=== PATIENT | female | born 1935 | race Caucasian/White ===

== ENCOUNTER 2016-07-23 20:22 | Inpatient (IN) | payer OTHER, BC ==
[~2016-07-23] VITALS: Ht 162.6 cm; Wt 63.2 kg
[~2016-07-23 20:22] MED LIST: ALPRAZOLAM0.25 M2 PO; COLACE100 MG PO; LEVOTHYROXINE75 MCG PO; LORTAB 5-325 M1 EACH PO; MEDROL DOSEPAK4 MG PO; PROPRANOLOL HCL80 MG PO; SKELAXIN800 MG PO; VALSARTAN320 MG PO
[2016-07-23 23:04] LABS: CHLORIDE 127 mEq/L (99-109); SODIUM 147 mEq/L (136-147)
[2016-07-23 23:05] LABS: GLUCOSE 95 mg/dL (70-99); POTASSIUM 2.1 mEq/L (3.7-5.4)
[2016-07-23 23:07] LABS: ANION GAP 6 MEQ/L (2-14)
[2016-07-23 23:09] LABS: GFR ESTIMATE (CALCULATED) > 59 mL/min/
[2016-07-23 23:10] LABS: UREA NITROGEN (BUN) 10 mg/dL (9-23)
[2016-07-23 23:14] LABS: HEMATOCRIT 20.8 % (36.0-46.0); MCH 31.9 PG (29.0-34.0); MCHC 31.7 G/DL (30.0-36.0); MCV 100.5 FL (83-99); MEAN PLAT.VOLUME 10.1 uM^3 (9.5-12.4); PLATELET COUNT 78 K/uL (156-360); RBC DIS.WIDTH-CV 12.9 % (11.8-14.6); RBC DIS.WIDTH-SD 47.1 % (39-53); RED BLOOD COUNT 2.07 M/uL (3.80-5.20); WHITE BLOOD COUNT 3.6 K/uL (4.1-10.2)
[2016-07-23 23:17] LABS: TROP-I INTERPRETATION NEGATIVE; TROPONIN-I < 0.01 ng/mL (0.0-0.30)
[2016-07-24] VITALS (7 sets, daily range): BP systolic 93–130; BP diastolic 54–74
[2016-07-24] MEDS ORDERED: CO Q-10100 MG PO (00:07)
[2016-07-24] MEDS ORDERED: EVISTA60 MG PO (00:07)
[2016-07-24] MEDS ORDERED: PRAVACHOL40 MG PO (00:07)
[2016-07-24] MEDS ORDERED: CENTRUM COMPLE1 EACH PO (00:08)
[2016-07-24] MEDS ORDERED: CITRACAL PLUS1 EAC1 PO (00:08)
[2016-07-24] MEDS ORDERED: LO-DOSE ASPIRIN81 M1 PO (00:09)
[2016-07-24 00:20] LABS: HEMATOCRIT 33.6 % (36.0-46.0); MCH 32.2 PG (29.0-34.0); MCV 97.4 FL (83-99); MEAN PLAT.VOLUME 10.4 uM^3 (9.5-12.4); PLATELET COUNT 137 K/uL (156-360); RBC DIS.WIDTH-CV 12.8 % (11.8-14.6); RBC DIS.WIDTH-SD 46.1 % (39-53); RED BLOOD COUNT 3.45 M/uL (3.80-5.20); WHITE BLOOD COUNT 10.2 K/uL (4.1-10.2)
[2016-07-24 00:34] LABS: SODIUM 143 mEq/L (136-147)
[2016-07-24 00:35] LABS: CHLORIDE 111 mEq/L (99-109); POTASSIUM 3.7 mEq/L (3.7-5.4)
[2016-07-24 00:36] LABS: GLUCOSE 128 mg/dL (70-99)
[2016-07-24 00:37] LABS: ANION GAP 9 MEQ/L (2-14)
[2016-07-24 00:38] LABS: TOTAL BILIRUBIN 0.9 mg/dL (0.0-1.0)
[2016-07-24 00:39] LABS: ALKALINE PHOSPHATASE 39 IU/L (3-129)
[2016-07-24 00:40] LABS: GFR ESTIMATE (CALCULATED) > 59 mL/min/
[2016-07-24 00:41] LABS: UREA NITROGEN (BUN) 14 mg/dL (9-23)
[2016-07-24 09:41] LABS: CREATINE KINASE 147 IU/L (1-294); TOTAL CK 147 IU/L (1-294)
[2016-07-24 10:01] LABS: TROP-I INTERPRETATION NEGATIVE; TROPONIN-I < 0.01 ng/mL (0.0-0.30)
[2016-07-24 10:07] LABS: CK-MB 1.6 ng/mL (0.0-4.9)
[2016-07-24 15:20] LABS: TROP-I INTERPRETATION NEGATIVE
[2016-07-24 15:22] LABS: TROPONIN-I < 0.01 ng/mL (0.0-0.30)
[2016-07-24 15:28] LABS: CK-MB 1.6 ng/mL (0.0-4.9); CREATINE KINASE 149 IU/L (1-294); TOTAL CK 149 IU/L (1-294)
[2016-07-24 20:45] LABS: CREATINE KINASE 22 IU/L (1-294); TOTAL CK 22 IU/L (1-294)
[2016-07-24 20:51] LABS: TROP-I INTERPRETATION NEGATIVE; TROPONIN-I < 0.01 ng/mL (0.0-0.30)
[2016-07-24 20:52] LABS: CK-MB 0.9 ng/mL (0.0-4.9)
[2016-07-25 00:19] LABS: TROP-I INTERPRETATION NEGATIVE; TROPONIN-I < 0.01 ng/mL (0.0-0.30)
[2016-07-25 04:55] VITALS: BP 136/75
[2016-07-25 06:12] LABS: EOSINOPHIL (%) 3.2 % (0-5); EOSINOPHIL COUNT 0.1 K/uL (0-0.3); IMMATURE GRANULOCYTE (%) 0.2 % (0.0-0.7); INSTRUMENT ABS NEUTROPHIL CT 2.4 K/uL; LYMPHOCYTE COUNT 1.5 K/uL (1.0-2.8); MCH 33.2 PG (29.0-34.0); MCHC 32.6 G/DL (30.0-36.0); MONOCYTE (%) 6.4 % (3-12); MONOCYTE COUNT 0.3 K/uL (0-0.8); NEUTROPHIL (%) 54.6 % (45-76); NEUTROPHIL COUNT 2.4 K/uL (1.8-6.4); PLATELET COUNT 96 K/uL (156-360); RBC DIS.WIDTH-CV 13.2 % (11.8-14.6); RBC DIS.WIDTH-SD 48.9 % (39-53)
[2016-07-25 06:14] LABS: MCV 101.9 FL (83-99); RED BLOOD COUNT 2.65 M/uL (3.80-5.20); WHITE BLOOD COUNT 4.4 K/uL (4.1-10.2)
[2016-07-25 06:41] LABS: ANION GAP 4 MEQ/L (2-14); CHLORIDE 113 MEQ/L (99-109); GFR ESTIMATE (CALCULATED) > 59 mL/min/; GLUCOSE 117 mg/dL (70-99); POTASSIUM 3.8 MEQ/L (3.7-5.4); SAMPLE HEMOLYSIS CHECK 0; SAMPLE ICTERIC CHECK 0; SAMPLE LIPEMIA CHECK 0; SODIUM 143 MEQ/L (136-147); UREA NITROGEN (BUN) 11 mg/dL (9-23)
[2016-07-25 07:48] VITALS: BP 139/65
[2016-07-25 09:27] LABS: MAGNESIUM 1.9 mg/dl (1.3-2.7)
[2016-07-25 11:51] VITALS: BP 145/78
[2016-07-25 13:52] LABS: ADD MIUA? NO; BILIRUBIN NEGATIVE; BLOOD NEGATIVE; COLOR YELLOW ((YELLOW)); GLUCOSE (STRIP) NEGATIVE; KETONES 20; LEUKOCYTES NEGATIVE; NITRITE NEGATIVE; PROTEIN (STRIP) NEGATIVE; SPECIFIC GRAVITY 1.006 (1.000-1.030); UCUL ADDED? NO; UROBILINOGEN 0.2 MG/DL (0.2-1.0)
[2016-07-25 16:22] VITALS: BP 134/87
[2016-07-25 20:23] VITALS: BP 123/68
[2016-07-25 23:37] LABS: TROP-I INTERPRETATION NEGATIVE; TROPONIN-I 0.05 ng/mL (0.0-0.30)
[2016-07-26 00:01] VITALS: BP 112/69
[2016-07-26 05:05] VITALS: BP 144/80
[2016-07-26 05:27] LABS: EOSINOPHIL (%) 2.4 % (0-5); EOSINOPHIL COUNT 0.1 K/uL (0-0.3); HEMATOCRIT 27.5 % (36.0-46.0); IMMATURE GRANULOCYTE (%) 0.4 % (0.0-0.7); INSTRUMENT ABS NEUTROPHIL CT 3.7 K/uL; LYMPHOCYTE COUNT 1.3 K/uL (1.0-2.8); MCH 32.5 PG (29.0-34.0); MCHC 32.4 G/DL (30.0-36.0); MCV 100.4 FL (83-99); MEAN PLAT.VOLUME 10.8 uM^3 (9.5-12.4); MONOCYTE (%) 5.9 % (3-12); MONOCYTE COUNT 0.3 K/uL (0-0.8); NEUTROPHIL (%) 66.8 % (45-76); NEUTROPHIL COUNT 3.7 K/uL (1.8-6.4); PLATELET COUNT 114 K/uL (156-360); RBC DIS.WIDTH-CV 12.9 % (11.8-14.6); RBC DIS.WIDTH-SD 47.3 % (39-53); RED BLOOD COUNT 2.74 M/uL (3.80-5.20); WHITE BLOOD COUNT 5.5 K/uL (4.1-10.2)
[2016-07-26 05:51] LABS: ALKALINE PHOSPHATASE 39 IU/L (3-129); ANION GAP 7 MEQ/L (2-14); CHLORIDE 108 MEQ/L (99-109); GFR ESTIMATE (CALCULATED) > 59 mL/min/; GLUCOSE 116 mg/dL (70-99); POTASSIUM 3.6 MEQ/L (3.7-5.4); SAMPLE HEMOLYSIS CHECK 0; SAMPLE ICTERIC CHECK 0; SAMPLE LIPEMIA CHECK 0; SODIUM 144 MEQ/L (136-147); TOTAL BILIRUBIN 0.9 MG/DL (0.0-1.0); UREA NITROGEN (BUN) 8 mg/dL (9-23)
[2016-07-26 07:46] VITALS: BP 138/77
[2016-07-26] MEDS ORDERED: Vitamin B-12 SL (11:34)
== END 2016-07-26 12:40 | disposition home health service (06) | DRG 563 ==
LOC: EME → EDSEX 20:22 → EME 20:22 → EDBD 20:22 → 3EAST 23:30 → EDOF 23:30 → 3EAST 07-24 01:08
PROVIDERS: Emergency Medicine; Hospitalist; Internal Medicine Nephrology
DX: S62.611A Displaced fracture of proximal phalanx of left index finger, initial encounter for closed fracture (principal); D61.818 Other pancytopenia; V49.88XA Car occupant (driver) (passenger) injured in other specified transport accidents, initial encounter; R55 Syncope and collapse; E78.5 Hyperlipidemia, unspecified; E03.9 Hypothyroidism, unspecified; I11.9 Hypertensive heart disease without heart failure; I45.10 Unspecified right bundle-branch block; S00.83XA Contusion of other part of head, initial encounter; S80.02XA Contusion of left knee, initial encounter; K21.9 Gastro-esophageal reflux disease without esophagitis; E78.00 Pure hypercholesterolemia, unspecified; F41.9 Anxiety disorder, unspecified; R00.1 Bradycardia, unspecified; E87.6 Hypokalemia
CPT/HCPCS: 70450; 70486; 71010; 71250; 73110; 73130; 73564; 73590; 74176; 80048; 80053; 81003; 82550; 82550 91; 82553; 82607; 82746; 83605; 83735; 84484; 85025; 85027; 86900; 86901; 93005; 93306; 93971; 94799; 99281; 99285; J1885; J2270; J2405; J3480; J7030; J7050